=== PATIENT | male | born 1995 | race Caucasian/White ===

== ENCOUNTER 2020-02-08 16:15 | Emergency (ER) | payer MEDICAID ==
[~2020-02-08] VITALS: Ht 175.3 cm; Wt 109.1 kg
[~2020-02-08 16:15] MED LIST: IBUP-1986 PO
[2020-02-08] MEDS ORDERED: TETanus/Pertussis (Acell)/Diphther VAC/PF (Tdap-Adult) 0.5ml syringe IMVAC ONE (16:55)
[2020-02-08] MEDS ORDERED: LIDOcaine 1% W/epiNEPHrine 1:200,000 10ml vial IJ ONE (16:55)
[2020-02-08] MEDS ORDERED: HYDROcodone/acetaminophen 10/325mg tab PO ONE (17:10)
[2020-02-08] MEDS ORDERED: ondansetron 4mg rapidly disintigrating tab PO ONE (17:10)
[2020-02-08 17:50] VITALS: BP 126/68
== END 2020-02-08 18:01 | disposition home or self-care (01) ==
LOC: ER 16:16
DX: S61.511A Laceration without foreign body of right wrist, initial encounter (principal); M79.601 Pain in right arm; Z79.899 Other long term (current) drug therapy; X58.XXXA Exposure to other specified factors, initial encounter; Y93.89 Activity, other specified; Y92.89 Other specified places as the place of occurrence of the external cause; Y99.8 Other external cause status
CPT/HCPCS: 12002; 73090; 73110; 90715; 99284

== ENCOUNTER 2020-02-10 02:31 | Emergency (ER) | payer MEDICAID ==
[~2020-02-10] VITALS: Ht 175.3 cm; Wt 109.0 kg
[2020-02-10 02:45] VITALS: BP 138/93
[2020-02-10] MEDS ORDERED: DOXYCYCLINE 100MG CAPSULE PO STA (02:56)
[2020-02-10] MEDS ORDERED: CEPH250T PO (02:58)
[2020-02-10] MEDS ORDERED: ONDA8TAB6 PO (02:58)
[2020-02-10] MEDS ORDERED: DOXY100C76 PO (02:58)
[2020-02-10] MEDS ORDERED: cephalexin 250mg capsule PO ONE (03:00)
[2020-02-10] MEDS ORDERED: ondansetron 4mg rapidly disintigrating tab PO ONE (03:00)
== END 2020-02-10 03:15 | disposition home or self-care (01) ==
LOC: ER 02:31
DX: L03.113 Cellulitis of right upper limb (principal); M25.531 Pain in right wrist; M25.431 Effusion, right wrist; R50.9 Fever, unspecified; Z79.2 Long term (current) use of antibiotics; Z79.899 Other long term (current) drug therapy
CPT/HCPCS: 99284

== ENCOUNTER 2020-02-15 22:27 | Emergency (ER) | payer MEDICAID ==
[~2020-02-15] VITALS: Ht 177.8 cm; Wt 110.5 kg
[~2020-02-15 22:27] MED LIST changes: +CEPH250T PO; +DOXY100C76 PO; +ONDA8TAB6 PO
[2020-02-15 22:30] VITALS: BP 150/84
[2020-02-15] MEDS ORDERED: bacitracin 15gm ointment TP ONE (22:45)
== END 2020-02-15 23:18 | disposition home or self-care (01) ==
LOC: ER 22:27
DX: T81.30XD Disruption of wound, unspecified, subsequent encounter (principal); Z79.899 Other long term (current) drug therapy
CPT/HCPCS: 99282

== ENCOUNTER 2021-09-01 16:53 | Emergency (ER) | payer MEDICARE, MEDICAID ==
[~2021-09-01] VITALS: Ht 180.3 cm; Wt 109.0 kg
[~2021-09-01 16:53] MED LIST changes: -CEPH250T PO; -DOXY100C76 PO
[2021-09-01 17:10] VITALS: BP 130/84
[2021-09-01] MEDS ORDERED: dexamethasone sod phosphate 10mg/ml inj PO STA (18:07)
[2021-09-01] MEDS ORDERED: amoxicillin 250mg capsule PO ONE (18:10)
[2021-09-01] MEDS ORDERED: AMOX500C2 PO (18:11)
--- NOTE | 2021-09-01 18:24 | NUR ---
Pt given and understands d/c instructions. Ambulatory with a steady gait.
== END 2021-09-01 18:26 | disposition home or self-care (01) ==
LOC: ER 17:05
DX: J02.0 Streptococcal pharyngitis (principal); Z20.822 Contact with and (suspected) exposure to COVID-19; Z79.2 Long term (current) use of antibiotics; Z79.899 Other long term (current) drug therapy
CPT/HCPCS: 87635; 87880; 99283; C9803; J1100

== ENCOUNTER 2024-10-11 17:07 | Emergency (ER) | payer MEDICARE, MEDICAID ==
[~2024-10-11] VITALS: Ht 175.3 cm; Wt 109.1 kg
[2024-10-11 17:16] VITALS: BP 141/83; PULSE 109; RESP 18; O2SAT 97
[2024-10-11] MEDS ORDERED: silver sulfadiazine cream 50gm TP ONE (19:00)
[2024-10-11] MEDS ORDERED: silver sulfadiazine cream 400gm jar TP ONE (19:00)
[2024-10-11] MEDS ORDERED: CEPH-585 PO (19:03)
[2024-10-11 19:11] VITALS: TEMP 98.9
[2024-10-11] MEDS: silver sulfadiazine cream 50gm TP ONE (19:14)
== END 2024-10-11 19:22 | disposition home or self-care (01) ==
LOC: ER 17:08
DX: T24.201A Burn of second degree of unspecified site of right lower limb, except ankle and foot, initial encounter (principal); X08.8XXA Exposure to other specified smoke, fire and flames, initial encounter; Y93.89 Activity, other specified; Y92.89 Other specified places as the place of occurrence of the external cause; Y99.8 Other external cause status
CPT/HCPCS: 16020; 99283; A6258